=== PATIENT | female | born 1985 | race Native Hawaiian/Other Pacific Islander ===

== ENCOUNTER 2020-11-24 19:59 | Emergency (ER) | payer OTHER ==
[~2020-11-24] VITALS: Ht 162.6 cm; Wt 145.2 kg
[2020-11-24 22:21] LABS: POTASSIUM 3.5 mmol/L (3.6-5.2)
[2020-11-24 22:27] LABS: PLATELET COUNT 215 K/uL (152-353)
[2020-11-25 00:45] VITALS: BP 129/65; TEMP 98.7
== END 2020-11-25 00:45 | disposition home or self-care (01) ==
LOC: ED 19:59
PROVIDERS: Family Medicine
DX: U07.1 COVID-19 (principal); J12.82 Pneumonia due to coronavirus disease 2019
CPT/HCPCS: 36415; 80053; 81000; 81025; 82550; 85027; 85379; 93005; 96372; 99283; J0696

== ENCOUNTER 2020-11-29 08:02 | Outpatient (CLI) | payer OTHER ==
[~2020-11-29] VITALS: Ht 162.6 cm; Wt 145.6 kg
== END 2020-11-29 19:21 | disposition home or self-care (01) ==
LOC: INF 08:02
PROVIDERS: ATTEND Internal Medicine Endocrinology, Diabetes & Metabolism
DX: Z23 Encounter for immunization (principal); U07.1 COVID-19
CPT/HCPCS: 96365; M0244